=== PATIENT | female | born 1990 | race Caucasian/White ===

== ENCOUNTER → 2016-12-07 | Outpatient (CLI) | payer OTHER ==
[~2016-12-07] VITALS: Ht 157.5 cm; Wt 126.1 kg
[2016-12-07 15:23] VITALS: BP 142/92; PULSE 52; BMI 21.0
[2016-12-07 15:24] VITALS: BP 142/92; PULSE 52; Ht 157.5 cm; Wt 126.1 kg
== END | disposition home or self-care (01) ==
LOC: C.NEUR 14:00
PROVIDERS: ATTEND Internal Medicine Pulmonary Disease
DX: G47.33 Obstructive sleep apnea (adult) (pediatric) (principal); G47.419 Narcolepsy without cataplexy; I10 Essential (primary) hypertension; F41.9 Anxiety disorder, unspecified; E78.5 Hyperlipidemia, unspecified; Z79.899 Other long term (current) drug therapy

== ENCOUNTER → 2017-02-21 | Outpatient (CLI) | payer OTHER ==
--- NOTE | 2017-02-22 06:16 | PAP/PSG TECHNICIAN REPORT ---
[facility] Epic Director Polysomnogram Report Study name: None Report date: 02/22/2017 Study date: 02/21/2017 Referring Physician: Dr. Deon Frank DO Name: JAYSON BAKER Interpreting Physician: Deon Frank D.O. Date of : 1990 Epic Director: THA Pavon. Sex: Female Age: 26 StudyType: PSG Weight: 277.9 lbs Height: 26 years, Height 5' 2" Neck Circum:17.5inches BMI: 50.82 Medications: Armodafinil 250mg, Gabapentin 300mg, Metoprolol Succinate ER 25mg, Nitrostat 0.4mg, Suboxone 8-2mg, Visaril 25mg, Cymbalta 20mg Patient History Study started on room air with no ETCO2 monitoring in room #8. 26 yr old female here tonight for a possible split psg. She had two previous diagnostic psg's done in Telephone. The first with an AHI of 4.9 and the 2nd with an AHI of 8.8. She was never treated with cpap. She has been diagnosed with narcolepsy. Her ESS=16/24. Neck circ=17.5inches Parameters Monitored NPSG: E1-M2, E2-M1, Fp1-M2, Fp2-M1, F3-M2, F4-M2, F4-M1, C3-M2, C4-M2, C4-M1, O1-M2, O2-M2, O2-M1, T3-M2, T4-M1, P3-M2, P4-M1, CHIN1, CHIN2, HR, EKG, Legs, PFLOW, SNOR, FLOW, CFLOW, Tidal Volume, THOR, ABDO, SpO2, PLTH, CPRESS, ETCO2 Wave, ETCO2, pH Sleep Architecture Sleep Stages Time at Lights Off 9:56:47 PM STAGES Time (min.) TST (%) Time at Lights On 5:30:47 AM Wake 100.5 -- Total Recording Time (TRT) 454.00 min. N1 22.5 6 Total Sleep Period (TSP) 426.5 min. N2 275.0 78 Total Sleep Time (TST) 353.5min. N3 56.0 16 Awake Time 100.5 min. REM 0.0 0 Wake after Sleep Onset 73.0 min. Sleep Efficiency (SE) 78 % Sleep Onset Latency (CARLIN) 27.5 min. Number of Stage 1 Shifts None Awakenings 17 Stage Changes 59 Number of REM periods N/A REM 0.0 0 REM Latency NONE min. NREM 353.5 100 Body Position Analysis Supine Right Left Side Prone Vertical Total Sleep Time (min.) 281.6 134.4 0.0 134.40 0.0 0.0 Total Sleep Time (%) 62% 38% 0% 38 0% N/A% Total Sleep Time REM (min.) 0.0 0.0 0.0 None 0.0 0.0 Total Sleep Time NREM (min.) 219.1 134.4 0.0 None 0.0 0.0 Intermittent Wake (min.) 62.5 32.6 5.5 None 0.0 0.0 Total Sleep Period (%) 65% None None None None None Arousals Myoclonus (PLM) * Events Count Index Events Count Index Spontaneous 17 3 Events Awake (PLMW) 67 40.0 Respiratory 5 1.0 Events Asleep w/ Arousal (PLMA) 6 1.0 PLM 6 1 Events Asleep w/o Arousal (PLMS) 24 4.1 Snoring 10 2 Total Asleep 30 5.1 Total 38 6 Total 97 13 Respiratory Analysis * CA OA MA CH H RERA Total Count 7 2 0 0 46 0 55 Index 1.2 0.3 0.0 0 7.8 0 9.3 Mean Duration 13.4 13.6 0.0 0.00 17.1 0.0 16.5 Longest Duration 15.3 15.9 0.0 0.00 0.0 0.0 44.4 Respiratory Event Summary Total Supine ~Supine Right Left Prone REM NREM Apneas Count 9 9 0 0 N/A N/A N/A 9 Index 1.5 2 0 0.0 N/A N/A N/A 2 Hypopneas (4% Desat) Count 46 33 13 13 N/A N/A N/A 46 Index 7.8 9.0 6 5.8 N/A N/A N/A 7.8 Apneas & All Hypopneas Count 55 42 13 13 N/A N/A N/A 55 Index 9.3 12 6 6 N/A N/A N/A 9.3 Respiratory Events (Horologist+All Hyp+RERA) Count 55 42 13 13 N/A N/A N/A 55 Index 9.3 12 6 5.8 N/A N/A N/A 9.3 Respiratory Related Arousal Count 5 42 1 1 N/A N/A N/A 6 Index 1.0 1 0 0 N/A N/A N/A 1 Snoring Analysis Supine Right Left Prone REM NREM Total Snore duration 61.2 min Snores count 2,396 821 N/A N/A N/A 3,217 3,217 Snore mean duration 1.1 Sec Snores index 656 367 N/A N/A N/A 546.0 546.0 TST with snoring (%) 17.3% Desaturation Event Summary: Minimum %SpO2 Event Count Mean/Min/Max Duration(sec.) Desaturation Index % Time In Bed > 90 99 17.3 / 4.8 / 57.8 138.4 9.9 86 - 90 71 17.9 / 4.5 / 60.0 11.2 87.8 81 - 85 3 10.7 / 7.5 / 12.5 18.4 2.3 76 - 80 0 N/A 0.0 0.0 71 - 75 0 N/A 0.0 0.0 66 - 70 0 N/A 0.0 0.0 61 - 65 0 N/A 0.0 0.0 56 - 60 0 N/A 0.0 0.0 51 - 55 0 N/A 0.0 0.0 < 50 0 N/A 0.0 0.0 Total REM NREM Awake <50% 0.0 min. 0.0 min. 0.0 min. 0.0 min. 51 - 60% 0.0 min. 0.0 min. 0.0 min. 0.0 min. 61 - 70% 0.0 min. 0.0 min. 0.0 min. 0.0 min. 71 - 80% 0.2 min. 0.0 min. 0.2 min. 0.0 min. 81 - 90% 388.9 min. 0.0 min. 335.5 min. 53.3 min. 91 - 100% 42.9 min. 0.0 min. 17.1 min. 25.8 min. Average 88 0 88 90 Minimum SpO2 77 N/A 77 82 Desaturation Event Index 16.3 0.0 15.6 19.7 # Desat. Events below 89% 109 N/A 89 20 Time(%) with Saturation below 89% 57.3 0.0 53.7 3.6 Time(min.) with Saturation below 89% 247.6 0.0 232.1 15.5 Time (mins) REM (mins) NREM (mins) % of TST SpO2 Below 90% 92 N/A N92 87.8 SpO2 Below 88% 24 0 0 34 Heart Rate Analysis Min (bpm) Max (bpm) Average (bpm) Awake 61 127 72 NREM 56 85 71 REM N/A N/A N/A Overall 56 85 71 Supplemental O2 Values Minimum O2 level: None Value Start Time End Time Epic Director Comments Ms. Baker slept in the right, left and supine positions. No cardiac arrhythmia or PLM's noted. No bruxism noted. Snoring was noted and scored as a 4 on a scale of 1 through 5. (0=no snoring, 5=snoring loud enough to be heard through a closed door or down the [address] way) She awoke to use the restroom 2 times during the night. She stated that she slept worse than when at home. She did not qualify for a split night study. The final report will be interpreted and signed by a sleep physician. The completed physician report will then be placed in the patient medical record. Therapy (cm H2O) 0 TIB (min.) 454.0 TST (min.) 353.5 Sleep Onset (min.) 27.5 REM Onset From Sleep (min.) NONE Sleep Efficiency % 78 Wakefulness (%) 22 Wakefulness (min.) 100.5 NREM 1 (%) 6 NREM 1 (min.) 22.5 NREM 2 (%) 78 NREM 2 (min.) 275.0 NREM 3 (%) 16 NREM 3 (min.) 56.0 REM (%) 0 REM (min.) 0.0 # Arousals 38 Arousal Index 6 # Snore 3,217 Snore Index 546.0 AHI 9.3 AHI Supine 12 AHI Non-Supine 6 NREM AHI 9.3 REM AHI N/A RDI 9.3 # Obstructive Apnea 2 # Central Apnea 7 # Mixed Apnea 0 # Hypopneas 46 RERAs 0 Total Respiratory Events 69 Time Below SpO2 89% (min.) 232.1 Mean NREM SpO2 (%) 88 Mean REM SpO2 (%) N/A Mean Sleep SpO2 (%) 88 Min NREM SpO2 (%) 77 Min REM SpO2 (%) N/A Position Supine (min.) 281.6 Position Non-supine (min.) 134.4 LM Index Sleep 5.1 LM Index NREM 5.1 LM Index REM N/A Mean Heart Rate (bpm) 71 Min Heart Rate (bpm) 56
--- NOTE | 2017-02-24 10:23 | Sleep Study ---
Sleep Study Report Date of Service: 02/21/2017 Sleep Study Report Clinical data: The patient is a 26-year-old female who has complaints of snoring, possible observed apneas, and excessive daytime somnolence. She initially had a sleep study done elsewhere on 06/03/2013 which showed an apnea-hypopnea index of 4.9. She had an additional study 11/15/2014 that showed an apnea-hypopnea index mildly elevated at 8.8. Multiple sleep latency testing was abnormal showing 3/ 5 naps with REM sleep and a mean sleep latency of 0.5 minutes. She has been on medications for narcolepsy since then. [facility] polysomnography to determine if she has concomitant obstructive sleep apnea. Sleep architecture: The total sleep period was 426.5 minutes. The total sleep time was 353.5 minutes. The sleep efficiency was moderately reduced to 78 percent. Sleep latency was prolonged to 27.5 minutes. Wake after sleep onset was increased to 73 minutes. Sleep consisted of stage N1 6 percent, stage N2 78 percent, stage N3 16 percent , stage REM 0 percent. Arousal data: The patient had a total of 38 arousals including 17 spontaneous arousals, 5 respiratory arousals, 6 PLM arousals, and 10 snoring arousals. The arousal index was 6. PLM data: The patient had a total of 30 periodic limb movements of sleep for a PLM index of 5.1. There were 6 arousals associated with limb movements for a PLM arousal index of 1.0. EKG: The underlying cardiac rhythm was normal sinus. The cardiac rates ranged from 56 up to 85 beats per minute. The average heart rate was 71 beats per minute. Respiratory data: The patient had a total of 55 respiratory events including 7 central apneas, 2 obstructive apneas, and 46 hypopneas. Hypopneas were scored according to the 4 percent desaturation rule. The longest apnea was 15.9 seconds. The mean duration of the hypopneas was 17.1 seconds. The apnea-hypopnea index is elevated at 9.3 events per hour. This represents mild obstructive sleep apnea. Oximetry data: The patient had an average saturation of 88 percent. The minimum saturation was 77 percent. There was a total of 247.6 minutes with saturations less than 89 percent. Dental Therapist comments: The patient slept on the right, left, and supine positions. No cardiac arrhythmia noted. No bruxism noted. Snoring was noted and scored as a 4 on a scale of 1 through 5. She awakened to use the restroom 2 times during the night. She stated that she slept worse than when at home. She did not qualify for a split night study. Impressions: 1. Mild obstructive sleep apnea 2. Narcolepsy by history Comments: The patient has mild sleep apnea. Her sleep efficiency was reduced. Her oxygenation was lower than normal throughout much of the night. Her sleep architecture was abnormal with no REM sleep at all. She does take Cymbalta which can suppress REM sleep. Patient has a history of narcolepsy. She is on medicines which could contribute to daytime somnolence including gabapentin and Robinson box own. She has a significant elevation of the [place] Sleepiness Scale in spite of being on armodafinil. Treatment for the concomitant sleep apnea would be advised. Recommendations: 1. It is suggested that the patient be started on nasal CPAP therapy. 2. The patient has an elevated body mass index of 50.82. A weight reduction program is advised. 3. If possible the patient should avoid sleeping in the supine position. 4. The patient should be advised the appropriate principles of sleep hygiene including having a regular sleep-wake schedule and allowing sufficient sleep time. In addition in light of the patient having narcolepsy, a planned brief nap may be helpful with daytime somnolence. Copies To 1: Deon Frank DO; Magdy Reilly M.D.
== END | disposition home or self-care (01) ==
LOC: C.NEUR 20:00
PROVIDERS: ATTEND Internal Medicine Pulmonary Disease
DX: G47.33 Obstructive sleep apnea (adult) (pediatric) (principal); G47.419 Narcolepsy without cataplexy